=== PATIENT | male | born 1990 | race African-American/Black ===

== ENCOUNTER 2017-09-04 20:19 | Emergency (ER) | payer OTHER ==
[~2017-09-04] VITALS: Ht 188 cm; Wt 93.0 kg
[2017-09-04 20:40] VITALS: BP 103/69
[2017-09-04] MEDS ORDERED: TAMIFLU75 MG ORAL (21:08)
[2017-09-04] MEDS ORDERED: IBUPROFEN600 MG ORAL (21:08)
--- NOTE | 2017-09-04 21:09 | Emergency Room Report ---
History of Present Illness General Chief Complaint: Upper Respiratory Illness Source: Patient Present Illness HPI Is a 27-year-old male with no past medical history. He presents with chief complaint of fever, body chills, coughing congestion for last 2-3 days. No nausea vomiting or diarrhea. Denies any other complaint. Decreased appetite. Allergies: Coded Allergies: No Known Allergies (Unverified , 09/04/17) Patient History Past Medical History: see triage record, old chart reviewed Past Surgical History: none Pertinent Family History: none Social History: Denies: smoking Immunizations: other Reviewed Nursing Documentation: PMH: Agreed, PSxH: Agreed Nursing Documentation-PMH Past Medical History: No Stated History Review of Systems Constitutional: Reports: chills, fever Eye: Denies: eye pain, blurred vision ENT: Reports: nose congestion, Denies: ear pain, throat swelling Respiratory: Reports: cough, Denies: shortness of breath Cardiovascular: Denies: chest pain, palpitations Gastrointestinal: Denies: abdominal pain, diarrhea, nausea, vomiting Musculoskeletal: Denies: back pain, joint pain Skin: Denies: rash Neurological: Denies: headache, numbness Endocrine: Denies: increased thirst, increased urine Hematologic/Lymphatic: Denies: easy bruising All Other Systems: negative except mentioned in HPI Physical Exam Vital Signs Date Time Temp Pulse Resp B/P (MAP) Pulse Ox O2 Delivery O2 Flow Rate FiO2 09/04/17 20:34 99.6 79 14 103/69 98 Room Air 99.7 vitals with low grade fever Sp02 EP Interpretation: reviewed, normal General Appearance: well appearing, no apparent distress, alert Head: normocephalic, atraumatic Eyes: bilateral eye PERRL, bilateral eye EOMI ENT: hearing grossly normal, pharyngeal erythema Neck: full range of motion, supple, no meningismus Respiratory: chest non-tender, lungs clear, normal breath sounds Cardiovascular #1: regular rate, rhythm, no murmur Gastrointestinal: normal bowel sounds, non tender, no mass, no organomegaly, no bruit, non-distended Musculoskeletal: back normal, gait/station normal, normal range of motion Psychiatric: mood/affect normal Skin: warm/dry Medical Decision Making Diagnostic Impression: Primary Impression: Upper respiratory infection Qualified Codes: J06.9 - Acute upper respiratory infection, unspecified Additional Impression: Influenza-like illness ER Course Patient with a viral flulike illness. No evidence of sepsis or pneumonia. No evidence of meningitis. We'll discharge home. Last Vital Signs Date Time Temp Pulse Resp B/P (MAP) Pulse Ox O2 Delivery O2 Flow Rate FiO2 09/04/17 20:40 99.7 14 103/69 98 Room Air 99.7 09/04/17 20:40 79 Status: unchanged Disposition: HOME, SELF-CARE Condition: Stable Scripts Ibuprofen* (MOTRIN*) 600 Mg Tablet 600 MG ORAL THREE TIMES A DAY, #30 TAB 0 Refills Prov: IKER SILVA M.D. 09/04/17 Oseltamivir Phosphate (Tamiflu) 75 Mg Capsule 75 MG ORAL TWICE A DAY, #10 CAP Prov: IKER SILVA M.D. 09/04/17 Additional Instructions: Followup with your Dr. in 7 days. Return if worse. IKER SILVA M.D. Sep 04, 2017 21:09
[2017-09-04 21:20] VITALS: BP 103/69
== END 2017-09-04 21:25 | disposition home or self-care (01) ==
LOC: EMR 21:21
DX: J06.9 Acute upper respiratory infection, unspecified (principal); J11.1 Influenza due to unidentified influenza virus with other respiratory manifestations
CPT/HCPCS: 99283